=== PATIENT | female | born 1970 | race Caucasian/White ===

== ENCOUNTER → 2016-12-06 | Outpatient (CLI) | payer OTHER | END | disposition home or self-care (01) | LOC: MMGSC 16:56 | PROVIDERS: ATTEND Family Medicine | DX: M79.1 Myalgia (principal); G62.9 Polyneuropathy, unspecified | CPT/HCPCS: 36415; 82306; 82607; 82746 ==

== ENCOUNTER → 2017-02-07 | Outpatient (CLI) | payer OTHER ==
[2017-02-07 08:01] LABS: CH 30.2; CHCM 32.1; HCT 40.4 % (34.0-46.0); HDW 2.24; HGB 13.1 gm/dL (11.4-16.0); MCH 30.7 pg (25.0-35.0); MCHC 32.5 g/dL (31.0-37.0); MCV 94.5 fL (80.0-100.0); Mean Platelet Volume 7.3; RBC 4.28 m/uL (3.80-5.40); RDW 13.1 % (11.5-15.5); WBC 8.6 k/uL (3.8-10.6)
[2017-02-07 11:08] LABS: Glucose 2 Hour 84 mg/dL
[2017-02-07 11:40] LABS: ALT 31 U/L (9-52); AST 16 U/L (14-36); Alkaline Phosphatase 62 U/L (38-126); Anion Gap 7 mmol/L; Blood Urea Nitrogen 9 mg/dL (7-17); Calcium 8.9 mg/dL (8.4-10.2); Carbon Dioxide 31 mmol/L (22-30); Chloride 103 mmol/L (98-107); Glucose 96 mg/dL (74-99); Non-African American GFR(MDRD) >60 (>60 ml/min/1.73 sqM); Potassium 4.3 mmol/L (3.5-5.1); Sodium 141 mmol/L (137-145); Total Bilirubin 0.4 mg/dL (0.2-1.3); Total Protein 6.1 g/dL (6.3-8.2)
[2017-02-07 12:18] LABS: Vitamin B12 365 pg/mL (239-931)
== END ==
LOC: LABWHC1 07:42
PROVIDERS: ATTEND Nurse Practitioner Acute Care
DX: G62.9 Polyneuropathy, unspecified (principal)
CPT/HCPCS: 36415; 80053; 82607; 82947; 82950; 84165; 84207; 84439; 84443; 84481; 85027; 86334

== ENCOUNTER → 2018-10-11 | Outpatient (CLI) | payer BC ==
--- NOTE | 2018-10-14 09:13 | MM ---
Reason for exam: screening (asymptomatic). Last mammogram was performed 2 years and 4 months ago. History: Family history of breast cancer in paternal grandmother at age 80 and premenopausal breast cancer in aunt at age 49. Physical Findings: A clinical breast exam by your physician is recommended on an annual basis and results should be correlated with mammographic findings. MG Screening Mammo w CAD Bilateral CC and MLO view(s) were taken. Prior study comparison: June 14, 2016, bilateral MG screening mammo w CAD. February 09, 2015, bilateral MG screening mammo w CAD. The breast tissue is heterogeneously dense. This may lower the sensitivity of mammography. There is no discrete abnormality. ASSESSMENT: Negative, BI-RAD 1 RECOMMENDATION: Routine screening mammogram of both breasts in 1 year.
== END | disposition home or self-care (01) ==
LOC: RADMAMWWP 07:19
PROVIDERS: ATTEND Obstetrics & Gynecology
DX: Z12.31 Encounter for screening mammogram for malignant neoplasm of breast (principal); Z80.3 Family history of malignant neoplasm of breast
CPT/HCPCS: 77067

== ENCOUNTER → 2019-01-07 | Outpatient (CLI) | payer BC ==
[2019-01-07 08:18] LABS: HCT 44.5 % (34.0-46.0); MCH 29.4 pg (25.0-35.0); MCHC 31.4 g/dL (31.0-37.0); MCV 93.6 fL (80.0-100.0); Mean Platelet Volume 6.3; Platelet Count 387 k/uL (150-450); RBC 4.76 m/uL (3.80-5.40); RDW 13.1 % (11.5-15.5); WBC 7.9 k/uL (3.8-10.6)
[2019-01-07 11:48] LABS: Albumin 4.2 g/dL (3.80-4.90); Albumin/Globulin Ratio 2.33 (1.60-3.17); Anion Gap 8.9 mmol/L (4.00-12.00); Calcium 9.2 mg/dL (8.7-10.3); Carbon Dioxide 30.1 mmol/L (21.6-31.8); Globulin 1.8 g/dL (1.6-3.3); LDL Cholesterol,Calculated 124.8 mg/dL (0.0-131.0); Potassium 4.7 mmol/L (3.5-5.5); Total Bilirubin 0.4 mg/dL (0.3-1.2); VLDL Calculation 16.2 mg/dL (5.00-40.00)
[2019-01-07 11:55] LABS: T4, Free (Free Thyroxine) 1.2 ng/dL (0.80-1.80)
== END | disposition home or self-care (01) ==
LOC: LABWHC1 07:49
PROVIDERS: ATTEND Family Medicine
DX: Z00.00 Encounter for general adult medical examination without abnormal findings (principal); E55.9 Vitamin D deficiency, unspecified
CPT/HCPCS: 36415; 80053; 80061; 82306; 84439; 84443; 85027

== ENCOUNTER → 2019-03-28 | Outpatient (CLI) | payer BC ==
--- NOTE | 2019-03-28 08:09 | US ---
EXAMINATION TYPE: US abdomen complete DATE OF EXAM: 03/28/2019 COMPARISON: NONE CLINICAL HISTORY: R10.13 Epigastric pain. x 2 months, nausea. EXAM MEASUREMENTS: Liver Length: 14.2 cm Gallbladder Wall: 0.2 cm CBD: 0.3 cm Spleen: 9.1 cm Right Kidney: 10.8 x 5.0 x 4.3 cm Left Kidney: 11.4 x 5.0 x 4.7 cm Pancreas: Partially Obscured by bowel gas Liver: wnl Gallbladder: No stones seen Evidence for sonographic Dickinson's sign: No CBD: wnl Spleen: wnl Right Kidney: No hydronephrosis or masses seen Left Kidney: No hydronephrosis or masses seen Upper IVC: wnl Abd Aorta: wnl The liver is homogenous. The intrahepatic portion of the IVC and proximal abdominal aorta are within normal limits. There is no evidence of cholelithiasis. Common bile duct is unremarkable. The visu alized portions of the pancreas are homogenous. The spleen is unremarkable. Kidneys are symmetric a nd free of hydronephrosis. No renal lesions are seen. IMPRESSION: No distinct abnormality appreciated.
== END ==
LOC: RADUSWWP 07:37
PROVIDERS: ATTEND Family Medicine
DX: R10.13 Epigastric pain (principal)
CPT/HCPCS: 76700

== ENCOUNTER 2019-05-23 07:20 | Day surgery (SDC) | payer BC ==
[2019-05-22 09:22] VITALS: BMI 32.9
[~2019-05-23 07:20] MED LIST: LACTATED RINGERS 1,000 ML IV SCH
[2019-05-23] MEDS ORDERED: LIDOCAINE 1%-EPI 1:100,000 20 ML VIAL INTRAARTIC ONE (07:44)
[2019-05-23] MEDS ORDERED: LIDOCAINE 1% INJ 10MG/ML (20 ML MDV) ONE (08:12)
[2019-05-23] MEDS ORDERED: PROPOFOL 10 MG/ML 20 ML VIAL IV ONE (08:12)
[2019-05-23 08:26] VITALS: TEMP 98.8
--- NOTE | 2019-05-23 08:31 | P.PCN ---
Date of Procedure: 05/23/19 Procedure(s) Performed: Brief history: Patient is a pleasant 49-year-old white female, scheduled for an elective upper endoscopy as well as colonoscopy as a part of evaluation of chronic epigastric pain a few months duration and screening for colorectal neoplasia Procedure performed: Esophagogastroduodenoscopy with biopsy Colonoscopy Preoperative diagnosis: Chronic epigastric pain few months duration Screening for colon cancer Anesthesia: MAC Procedure: After informed consent was obtained from the patient was brought into the endoscopy unit and IV sedation was administered by anesthesia under continuous monitoring. Initially upper endoscopy was done. The Olympus GF 160 video endoscope was inserted inserted into the mouth and esophagus intubated without any difficulty and was gradually advanced into the stomach and duodenum and carefully examined. The bulb and second part of the duodenum appeared normal. Labs were done from the duodenum to rule out celiac disease. The scope was then withdrawn into the stomach adequately insufflated with air and upon careful examination the antrum had mild gastritis and and biopsies were done from this area. The bodyy, cardia and fundus appeared normal. The scope was then withdrawn into the esophagus. The GE junction was located at 36 cm to the incisors. Small hiatal hernia noted. It appeared regular with no erythema erosions or ulcerations. There was one fundus Perez's appearing mucosa extending 2 mm proximal to the GE junction and this was biopsied. Rest of the esophagus appeared normal. Patient tolerated the procedure well. At this time the patient continued to remain sedation. Initial digital rectal examination was normal. Olympus CF 160 video colonoscope was then inserted into the rectum and gradually advanced to the cecum without any difficulty. Careful examination was performed as the scope was gradually being withdrawn. The prep was excellent. The cecum, ascending colon, transverse colon, descending colon, sigmoid colon and rectum appeared normal. scattered sigmoid diverticulosis. Retroflexion was performed in the rectum and no lesions were noted. Patient tolerated the procedure well. Impression: 1. Upper endoscopy revealed mild antral gastritis, small hiatal hernia and short segment Perez's esophagus 2. Colonoscopy revealed scattered similar diverticulosis but no evidence of colitis or colorectal neoplasia Recommendations: Findings of this examination were discussed with the patient as well as her family. She was advised to follow with the biopsy results. She will continue with Prevacid 20 mg daily and follow antireflux measures. she can have a repeat screening colonoscopy in 10 years.
[2019-05-23 08:38] VITALS: RESP 18
[2019-05-23 09:03] VITALS: BP 138/87; PULSE 67
== END 2019-05-23 09:47 | disposition home or self-care (01) ==
LOC: ORWHC2ENDO 07:20
PROVIDERS: ATTEND Internal Medicine Gastroenterology
DX: Z12.11 Encounter for screening for malignant neoplasm of colon (principal); K29.50 Unspecified chronic gastritis without bleeding; K21.0 Gastro-esophageal reflux disease with esophagitis; K44.9 Diaphragmatic hernia without obstruction or gangrene; K57.90 Diverticulosis of intestine, part unspecified, without perforation or abscess without bleeding; Z79.899 Other long term (current) drug therapy; Z88.2 Allergy status to sulfonamides
CPT/HCPCS: 81025; 88305; 43239; J2001; J2704; G0121; 45378

== ENCOUNTER 2019-07-19 12:16 | Emergency (ER) | payer BC ==
[2019-07-19 12:25] VITALS: TEMP 98
[2019-07-19] MEDS ORDERED: SODIUM CHLORIDE 0.9% 1,000 ML IV STA ×2 (12:44)
[2019-07-19] MEDS ORDERED: KETOROLAC 30 MG/ML 1 ML VIAL IVP STA (12:52)
[2019-07-19] MEDS ORDERED: ONDANSETRON 4 MG/2 ML VIAL IVP STA (12:52)
[2019-07-19] MEDS ORDERED: MORPHINE SULFATE 4 MG/ML SYRINGE IVP STA (12:52)
[2019-07-19 13:01] LABS: Appearance,Urine Turbid (Clear); Bacteria,Urine Many /hpf; Bilirubin,Urine Negative (Negative); Blood,Urine Large (Negative); Color,Urine Yellow; Glucose,Urine (UA) Negative (Negative); Ketones,Urine 1+ (Negative); Leukocyte Esterase,Urine Large (Negative); Mucus,Urine Many /hpf; Nitrite,Urine Positive (Negative); Protein,Urine 1+ (Negative); RBC,Urine 122 /hpf (0-5); Specific Gravity,Urine 1.018 (1.001-1.035); Squamous Epithelial Cell,Urine 17 /hpf (0-4); WBC,Urine >182 /hpf (0-5)
[2019-07-19 13:03] LABS: INR 0.9 (<1.2)
[2019-07-19 13:04] LABS: Partial Thromboplastin Time 28.6 sec (22.0-30.0); Prothrombin Time 9.6 sec (9.0-12.0)
[2019-07-19 13:05] LABS: Basophils # (A) 0.1 k/uL (0-0.2); Basophils % (A) 1 %; Eosinophils # (A) 0.2 k/uL (0-0.7); Eosinophils % (A) 2 %; HCT 36.8 % (34.0-46.0); HGB 12.3 gm/dL (11.4-16.0); Lymphocytes # (A) 1.8 k/uL (1.0-4.8); Lymphocytes % (A) 15 %; MCH 30.1 pg (25.0-35.0); MCHC 33.5 g/dL (31.0-37.0); MCV 89.7 fL (80.0-100.0); Mean Platelet Volume 6.8; Monocytes # (A) 0.9 k/uL (0-1.0); Monocytes % (A) 8 %; Neutrophils # (A) 8.4 k/uL (1.3-7.7); Neutrophils % (A) 72 %; Platelet Count 406 k/uL (150-450); RDW 13.9 % (11.5-15.5); WBC 11.7 k/uL (3.8-10.6)
--- NOTE | 2019-07-19 13:08 | XR ---
EXAMINATION TYPE: XR KUB DATE OF EXAM: 07/19/2019 COMPARISON: None INDICATION: Abdominal pain TECHNIQUE: Single view abdomen upright view FINDINGS: There is a nonspecific bowel gas pattern. No mass effect is evident. No suspicious air-fluid levels a re present. No free air is evident. No dilated loops of bowel are evident. Psoas margins are normal. No organomegaly is present. IMPRESSION: 1. Unremarkable Abdomen. Bowel gas pattern is nonspecific.
[2019-07-19 13:15] LABS: ALT 28 U/L (9-52); AST 16 U/L (14-36); African American GFR (CKD) >90 (>60 ml/min/1.73 sqM); Albumin 3.4 g/dL (3.5-5.0); Alkaline Phosphatase 94 U/L (38-126); Amylase 36 U/L (30-110); Anion Gap 10 mmol/L; Blood Urea Nitrogen 9 mg/dL (7-17); Calcium 8.6 mg/dL (8.4-10.2); Carbon Dioxide 28 mmol/L (22-30); Chloride 100 mmol/L (98-107); Glucose 100 mg/dL (74-99); Potassium 3.6 mmol/L (3.5-5.1); Sodium 138 mmol/L (137-145); Total Bilirubin 0.6 mg/dL (0.2-1.3); Total Protein 6.4 g/dL (6.3-8.2)
[2019-07-19 13:17] VITALS: RESP 14
--- NOTE | 2019-07-19 13:42 | ED ---
Abdominal Pain HPI - General Chief Complaint: Abdominal Pain Stated Complaint: lt sided abd pain Time Seen by Provider: 07/19/19 12:43 Source: patient, RN notes reviewed, old records reviewed Mode of arrival: ambulatory Limitations: no limitations - History of Present Illness Initial Comments: Patient is a 49-year-old female presents emergency department today for evaluation with complaints of left sided flank pain since Sunday. Patient reports that she's been having some dark urine. No history of kidney stones or kidney infections. She reports chills. She denies any other symptoms. - Related Data Home Medications Medication Instructions Recorded Confirmed ALPRAZolam [Xanax] 0.25 mg PO BID PRN 05/22/19 05/23/19 Ascorbic Acid [Vitamin C] 500 mg PO DAILY 05/22/19 05/23/19 Aspirin/Acetaminophen/Caffeine 1 each PO Q6H PRN 05/22/19 05/23/19 [Excedrin Extra Strength Caplet] Cholecalciferol (Vitamin D3) 1,000 unit PO DAILY 05/22/19 05/23/19 [Vitamin D3] Omeprazole Magnesium [PriLOSEC OTC] 20 mg PO DAILY 05/22/19 05/23/19 Potassium 99 mg PO DAILY 05/22/19 05/23/19 Previous Rx's Medication Instructions Recorded Cephalexin [Keflex] 500 mg PO Q6HR #40 cap 07/19/19 HYDROcodone/APAP 5-325MG [[place] 1 tab PO Q6HR PRN #10 tab 07/19/19 5-325] Ketorolac [Toradol] 10 mg PO Q6HR #15 tab 07/19/19 Allergies Allergy/AdvReac Type Severity Reaction Status Date / Time Sulfa (Sulfonamide Allergy Anaphylaxis Verified 05/23/19 07:35 Antibiotics) Review of Systems ROS Statement: Those systems with pertinent positive or pertinent negative responses have been documented in the HPI. ROS Other: All systems not noted in ROS Statement are negative. Past Medical History Past Medical History: GERD/Reflux Additional Past Medical History / Comment(s): epigastric pain for a month, ten cary to touch History of Any Multi-Drug Resistant Organisms: None Reported Past Surgical History: Section, Tubal Ligation Past Anesthesia/Blood Transfusion Reactions: Postoperative Nausea & Vomiting (PONV) Past Psychological History: No Psychological Hx Reported Smoking Status: Former smoker Past Alcohol Use History: None Reported Past Drug Use History: None Reported - Past Family History Mother Family Medical History: No Reported History General Exam - General Exam Comments Initial Comments: This is a 49 year old female, no distress. Limitations: no limitations General appearance: alert, in no apparent distress Head exam: Present: atraumatic, normocephalic, normal inspection Eye exam: Present: normal appearance, PERRL, EOMI. Absent: scleral icterus, conjunctival injection, periorbital swelling ENT exam: Present: normal exam, mucous membranes moist Neck exam: Present: normal inspection. Absent: tenderness, meningismus, lymphad enopathy Respiratory exam: Present: normal lung sounds bilaterally. Absent: respiratory distress, wheezes, rales, rhonchi, stridor Cardiovascular Exam: Present: regular rate, normal rhythm, normal heart sounds. Absent: systolic murmur, diastolic murmur, rubs, gallop, clicks GI/Abdominal exam: Present: soft, tenderness (L cva ), normal bowel sounds. Absent: distended, guarding, rebound, rigid Extremities exam: Present: normal inspection, full ROM, normal capillary refill. Absent: tenderness, pedal edema, joint swelling, calf tenderness Back exam: Present: normal inspection Neurological exam: Present: alert, oriented X3, CN II-XII intact Psychiatric exam: Present: normal affect, normal mood Skin exam: Present: warm, dry, intact, normal color. Absent: rash Course Vital Signs 07/19/19 07/19/19 07/19/19 12:22 13:17 15:12 Temperature 98 F Pulse Rate 94 89 84 Respiratory 18 14 14 Rate Blood Pressure 127/86 129/79 118/82 O2 Sat by Pulse 95 95 98 Oximetry Medical Decision Making - Medical Decision Making 49 year old female with left flank pain, chills and abdominal pain for 5 days. At this time UA is positive for infection. Patient has normal labs otherwise. CT completed to rule out possible stone. Evidence of left sided perinephric stranding and concern for pyelopnephritis. At this time patient given 2 g rocephin and fluids. Urine culture completed. DC with Rx or keflex and pain medication. Discussed close follow up and return parameters discussed. Di scussed PCP follow up. - Lab Data Result diagrams: 07/19/19 12:40 07/19/19 12:40 Lab Results 07/19/19 07/19/19 07/19/19 Range/Units 12:40 12:40 12:40 WBC 11.7 H (3.8-10.6) k/uL RBC 4.10 (3.80-5.40) m/uL Hgb 12.3 (11.4-16.0) gm/dL Hct 36.8 (34.0-46.0) % MCV 89.7 (80.0-100.0) fL MCH 30.1 (25.0-35.0) pg MCHC 33.5 (31.0-37.0) g/dL RDW 13.9 (11.5-15.5) % Plt Count 406 (150-450) k/uL Neutrophils % 72 % Lymphocytes % 15 % Monocytes % 8 % Eosinophils % 2 % Basophils % 1 % Neutrophils # 8.4 H (1.3-7.7) k/uL Lymphocytes # 1.8 (1.0-4.8) k/uL Monocytes # 0.9 (0-1.0) k/uL Eosinophils # 0.2 (0-0.7) k/uL Basophils # 0.1 (0-0.2) k/uL PT 9.6 (9.0-12.0) sec INR 0.9 (<1.2) APTT 28.6 (22.0-30.0) sec Sodium 138 (137-145) mmol/L Potassium 3.6 (3.5-5.1) mmol/L Chloride 100 (98-107) mmol/L Carbon Dioxide 28 (22-30) mmol/L Anion Gap 10 mmol/L BUN 9 (7-17) mg/dL Creatinine 0.49 L (0.52-1.04) mg/dL Est GFR (CKD-EPI)AfAm >90 (>60 ml/min/1.73 sqM) Est GFR (CKD-EPI)NonAf >90 (>60 ml/min/1.73 sqM) Glucose 100 H (74-99) mg/dL Calcium 8.6 (8.4-10.2) mg/dL Total Bilirubin 0.6 (0.2-1.3) mg/dL AST 16 (14-36) U/L ALT 28 (9-52) U/L Alkaline Phosphatase 94 (38-126) U/L Total Protein 6.4 (6.3-8.2) g/dL Albumin 3.4 L (3.5-5.0) g/dL Amylase 36 (30-110) U/L Lipase 36 (23-300) U/L Urine Color Urine Appearance (Clear) Urine pH (5.0-8.0) Ur Specific [place] (1.001-1.035) Urine Protein (Negative) Urine Glucose (UA) (Negative) Urine Ketones (Negative) Urine Blood (Negative) Urine Nitrite (Negative) Urine Bilirubin (Negative) Urine Urobilinogen (<2.0) mg/dL Ur Leukocyte Esterase (Negative) Urine RBC (0-5) /hpf Urine WBC (0-5) /hpf Urine WBC Clumps (None) /hpf Ur Squamous Epith Cells (0-4) /hpf Urine Bacteria (None) /hpf Urine Mucus (None) /hpf 07/19/19 Range/Units 12:40 WBC (3.8-10.6) k/uL RBC (3.80-5.40) m/uL Hgb (11.4-16.0) gm/dL Hct (34.0-46.0) % MCV (80.0-100.0) fL MCH (25.0-35.0) pg MCHC (31.0-37.0) g/dL RDW (11.5-15.5) % Plt Count (150-450) k/uL Neutrophils % % Lymphocytes % % Monocytes % % Eosinophils % % Basophils % % Neutrophils # (1.3-7.7) k/uL Lymphocytes # (1.0-4.8) k/uL Monocytes # (0-1.0) k/uL Eosinophils # (0-0.7) k/uL Basophils # (0-0.2) k/uL PT (9.0-12.0) sec INR (<1.2) APTT (22.0-30.0) sec Sodium (137-145) mmol/L Potassium (3.5-5.1) mmol/L Chloride (98-107) mmol/L Carbon Dioxide (22-30) mmol/L Anion Gap mmol/L BUN (7-17) mg/dL Creatinine (0.52-1.04) mg/dL Est GFR (CKD-EPI)AfAm (>60 ml/min/1.73 sqM) Est GFR (CKD-EPI)NonAf (>60 ml/min/1.73 sqM) Glucose (74-99) mg/dL Calcium (8.4-10.2) mg/dL Total Bilirubin (0.2-1.3) mg/dL AST (14-36) U/L ALT (9-52) U/L Alkaline Phosphatase (38-126) U/L Total Protein (6.3-8.2) g/dL Albumin (3.5-5.0) g/dL Amylase (30-110) U/L Lipase (23-300) U/L Urine Color Yellow Urine Appearance Turbid H (Clear) Urine pH 6.0 (5.0-8.0) Ur Specific [place] 1.018 (1.001-1.035) Urine Protein 1+ H (Negative) Urine Glucose (UA) Negative (Negative) Urine Ketones 1+ H (Negative) Urine Blood Large H (Negative) Urine Nitrite Positive H (Negative) Urine Bilirubin Negative (Negative) Urine Urobilinogen 3.0 (<2.0) mg/dL Ur Leukocyte Esterase Large H (Negative) Urine RBC 122 H (0-5) /hpf Urine WBC >182 H (0-5) /hpf Urine WBC Clumps Many H (None) /hpf Ur Squamous Epith Cells 17 H (0-4) /hpf Urine Bacteria Many H (None) /hpf Urine Mucus Many H (None) /hpf - Radiology Data Radiology results: report reviewed (Upper extremity with no evidence of hydronephrosis or hydroureter. Palate otitis could be considered. Anything else occasional the mid left ureter is not excluded could be within differential. Diverticulosis without acute diverticulitis. Disposition Clinical Impression: Pyelonephritis Disposition: HOME SELF-CARE Condition: Good Instructions (If sedation given, give patient instructions): Kidney Infection (ED) Additional Instructions: Patient advsied to follow up with your primary care physician. Take antibiotics as prescribed. Use the pain medicine as directed. Return to emergency department if any alarming signs or symptoms occur. Prescriptions: Cephalexin [Keflex] 500 mg PO Q6HR #40 cap HYDROcodone/APAP 5-325MG [[place] 5-325] 1 tab PO Q6HR PRN #10 tab PRN Reason: Pain Ketorolac [Toradol] 10 mg PO Q6HR #15 tab Is patient prescribed a controlled substance at d/c from ED?: No Referrals: Flor Kellogg MD [Primary Care Provider] - 1-2 days Time of Disposition: 14:59
--- NOTE | 2019-07-19 13:59 | CT ---
EXAMINATION TYPE: CT abdomen pelvis wo con DATE OF EXAM: 07/19/2019 COMPARISON: None INDICATION: Lt flank pain DLP: 770 mGycm, Automated exposure control for dose reduction was used. CONTRAST: 0 mL of Isovue 300. Study performed without Oral Contrast TECHNIQUE: Axial images were obtained from above the diaphragm to the pubic rami in the axial plane a t 5 mm thick sections. Reconstructed images are reviewed on the computer in the coronal plane. FINDINGS: Limited CT sections are obtained the lung bases. The lung bases are clear. CT ABDOMEN: Liver: Normal Spleen: Normal Pancreas: Normal Adrenal glands: The adrenal glands are normal. Gallbladder: Normal Kidneys: No masses are evident. Left perinephric stranding is present. Correlate for pyelonephritis. No hydronephrosis is present. No cysts are present. No renal stones are identified. Within the exp ected region of the left ureter some very faint increased density may be within the distal ureter, se rafal 201 image 91. A punctate nonobstructing renal stone is not excluded. Aorta: Vascular calcification is within the aorta. Inferior vena cava: Normal. CT PELVIS: Loops of bowel within the abdomen and pelvis are normal. Is performed without oral contrast limit ing bowel evaluation. Scattered diverticuli are within the sigmoid colon Appendix: Normal as visualized. Urinary bladder: Decompressed and cannot be evaluated Genitourinary structures: Uterus is normal. Adnexal regions are clear. Osseous structures: No suspicious lytic or sclerotic lesions. IMPRESSIONS: 1. Some left perinephric stranding is present without evidence of hydronephrosis or hydroureter or r enal stones. Pyelonephritis could be considered. Very faint tiny calcification within the mid left ur eter is not excluded should be considered within the differential. 2. Diverticulosis without acute diverticulitis.
[2019-07-19 15:13] VITALS: BP 118/82; PULSE 84
== END 2019-07-19 15:11 | disposition home or self-care (01) ==
LOC: EC 12:16
DX: N12 Tubulo-interstitial nephritis, not specified as acute or chronic (principal); K21.9 Gastro-esophageal reflux disease without esophagitis; Z98.51 Tubal ligation status; Z87.891 Personal history of nicotine dependence; Z79.899 Other long term (current) drug therapy; Z88.2 Allergy status to sulfonamides
CPT/HCPCS: 99285; 96365; 96375 ×3; 96361 ×2; 36415; 80053; 82150; 83690; 85025; 85610; 85730; 81001; 87086; 87077; 87186; 74018; 74176; J2270; J2405; J0696; J1885

== ENCOUNTER → 2019-12-24 | Outpatient (CLI) | payer BC ==
--- NOTE | 2019-12-25 10:20 | MM ---
Reason for exam: screening (asymptomatic). Last mammogram was performed 1 year and 2 months ago. History: Family history of breast cancer in paternal grandmother at age 80 and premenopausal breast cancer in aunt at age 49. Physical Findings: A clinical breast exam by your physician is recommended on an annual basis and results should be correlated with mammographic findings. MG 3D Screening Mammo W/Cad Bilateral CC and MLO view(s) were taken. Prior study comparison: October 11, 2018, bilateral MG screening mammo w CAD. June 14, 2016, bilateral MG screening mammo w CAD. There are scattered fibroglandular densities. No suspicious abnormality. No significant changes when compared with prior studies. ASSESSMENT: Negative, BI-RAD 1 RECOMMENDATION: Routine screening mammogram of both breasts in 1 year.
== END | disposition home or self-care (01) ==
LOC: RADMAMWWP 07:37
PROVIDERS: ATTEND Obstetrics & Gynecology
DX: Z08 Encounter for follow-up examination after completed treatment for malignant neoplasm (principal); Z80.3 Family history of malignant neoplasm of breast
CPT/HCPCS: 77063; 77067

== ENCOUNTER → 2020-01-13 | Outpatient (CLI) | payer SELFPAY ==
--- NOTE | 2020-01-13 10:47 | CT ---
EXAMINATION TYPE: CT heart w calcium score DATE OF EXAM: 01/13/2020 COMPARISON: None HISTORY: Screening for cardiovascular disorder. 213.9 CT DLP: 51.90 mGycm Automated exposure control for dose reduction was used. CT CALCIUM SCORING Coronary calcium is a marker for plaque (fatty deposits) in a blood vessel or atherosclerosis (harden ing of the arteries). The presence and amount of calcium detected in a coronary artery by the CT sca n, indicates the presence and amount of atherosclerotic plaque. These calcium deposits appear years before the development of heart disease symptoms such as chest pain and shortness of breath. A calcium score is computed for each of the coronary arteries based upon the volume and density of th e calcium deposits. This can be referred to as your calcified plaque burden. It does not correspond directly to the percentage of narrowing in the artery but does correlate with the severity of the un derlying coronary atherosclerosis. PROCEDURE TECHNIQUE - Prospective Gating was used. Slice thickness: 3mm. Density threshold (HU): 130, Pixel threshold: 3, Algorithm: discrete. RESULTS Region: LM Calcium Score ([place]): 0.00 Volume (mm3): 0.00 Mass (g): 0.00 Region: RCA Calcium Score ([place]): 0.00 Volume (mm3): 0.00 Mass (g): 0.00 Region: LAD Calcium Score ([place]): 0.00 Volume (mm3): 0.00 Mass (g): 0.00 Region: CX Calcium Score ([place]): 0.00 Volume (mm3): 0.00 Mass (g): 0.00 Region: PDA Calcium Score ([place]): 0.00 Volume (mm3): 0.00 Mass (g): 0.00 Total: Calcium Score ([place]): 0.00 Volume (mm3): 0.00 Mass (g): 0.00 TOTAL CALCIUM SCORE: 0.00 IMPRESSION: Calcium Score: 0 Implication: Very low risk of coronary artery disease Risk of Coronary Artery Disease: Generally less than 5% CALCIUM SCORE IMPLICATION RISK OF C ORONARY ARTERY DISEASE 0 No identifiable plaque Very low, generally less than 5% 1-10 Minimal identifiable plaque Very unlikely, less than 10% 11-100 Definite, at least mild atherosclerotic plaque Mild or m inimal coronary narrowings likely 101-400 Definite, at least moderate atherosclerotic plaque Mild coronary ar marci disease highly likely, significant narrowing possible 401 or Higher Extensive atherosclerotic plaque High lik elihood of at least one significant coronary narrowing
== END | disposition home or self-care (01) ==
LOC: RADCTMAIN 08:41
PROVIDERS: ATTEND Internal Medicine Interventional Cardiology
DX: Z13.9 Encounter for screening, unspecified (principal); Z88.2 Allergy status to sulfonamides
CPT/HCPCS: 75571

== ENCOUNTER → 2020-08-25 | Outpatient (CLI) | payer BC ==
--- NOTE | 2020-08-25 13:55 | US ---
EXAMINATION TYPE: US pelvis complete transvag DATE OF EXAM: 08/25/2020 COMPARISON: CT CLINICAL HISTORY: R10.13 Epigastric pain. LLQ pain per patient. TECHNIQUE: Transvaginal (TV) and Transabdominal (TA) . Transabdominal sonographic images of the pel vis were acquired. Transvaginal sonographic images were medically necessary to better assess the fol lowing anatomy: ovaries. Date of LMP: 07/05/2020 EXAM MEASUREMENTS: Uterus: 8.8 x 4.2 x 5.2 cm Endometrial Stripe: 0.6 cm Right Ovary: 2.5 x 2.1 x 1.3 cm Left Ovary: 2.2 x 2.3 x 0.9 cm 1. Uterus: Anteverted heterogeneous echotexture 2. Endometrium: difficult to distinguish 3. Right Ovary: wnl 4. Left Ovary: wnl 5. Bilateral Adnexa: wnl 6. Posterior cul-de-sac: no free fluid IMPRESSION: 1. Uterus is heterogeneous. Endometrium is difficult to identify and limited in evaluation. No adnexa l mass or free fluid.
--- NOTE | 2020-08-25 13:56 | US ---
EXAMINATION TYPE: US abdomen limited DATE OF EXAM: 08/25/2020 COMPARISON: CT CLINICAL HISTORY: R10.13 Epigastric pain. EXAM MEASUREMENTS: Liver Length: 10.6 cm Gallbladder Wall: 0.2 cm CBD: 0.4 cm Right Kidney: 9.9 x 4.8 x 4.9 cm Pancreas: visualized portions wnl Liver: wnl Gallbladder: No stones seen Evidence for sonographic Dickinson's sign: No CBD: wnl Right Kidney: No hydronephrosis or masses seen IMPRESSION: 1. No acute process.
== END | disposition home or self-care (01) ==
LOC: RADUSWWP 12:18
PROVIDERS: ATTEND Family Medicine
DX: R10.13 Epigastric pain (principal)
CPT/HCPCS: 76705; 76830; 76856

== ENCOUNTER → 2020-11-12 | Outpatient (CLI) | payer BC ==
[2020-11-12 15:51] LABS: Chol/HDL Ratio 3.35; LDL Cholesterol,Calculated 141.2 mg/dL (0.0-131.0); VLDL Calculation 25.8 mg/dL (5.00-40.00)
== END | disposition home or self-care (01) ==
LOC: LABWHC1 09:03
PROVIDERS: ATTEND Nurse Practitioner Adult Health
DX: E78.5 Hyperlipidemia, unspecified (principal); E55.9 Vitamin D deficiency, unspecified
CPT/HCPCS: 36415; 80061; 82306

== ENCOUNTER → 2021-01-31 | Outpatient (CLI) | payer BC ==
--- NOTE | 2021-02-01 11:26 | MM ---
Reason for exam: screening (asymptomatic). Last mammogram was performed 1 year and 1 month ago. History: Family history of breast cancer in paternal grandmother at age 80 and premenopausal breast cancer in aunt at age 49. Physical Findings: A clinical breast exam by your physician is recommended on an annual basis and results should be correlated with mammographic findings. MG 3D Screening Mammo W/Cad Bilateral CC and MLO view(s) were taken. Prior study comparison: December 24, 2019, bilateral MG 3d screening mammo w/cad. October 11, 2018, bilateral MG screening mammo w CAD. There are scattered fibroglandular densities. There is no discrete abnormality. ASSESSMENT: Negative, BI-RAD 1 RECOMMENDATION: Routine screening mammogram of both breasts in 1 year.
== END | disposition home or self-care (01) ==
LOC: RADMAMWWP 07:48
PROVIDERS: ATTEND Obstetrics & Gynecology
DX: Z12.31 Encounter for screening mammogram for malignant neoplasm of breast (principal); Z80.3 Family history of malignant neoplasm of breast
CPT/HCPCS: 77063; 77067

== ENCOUNTER → 2021-11-22 | Outpatient (CLI) | payer BC ==
[2021-11-22 18:33] LABS: HGB 14.5 g/dL (12.0-15.0); MCH 29.4 pg (27.0-32.0); MCHC 30.9 g/dL (32.0-37.0); MCV 95.1 fL (80.0-97.0); Mean Platelet Volume 9.6 fL (9.5-12.2); Platelet Count 393 X 10*3/uL (140-440); RBC 4.94 X 10*6/uL (4.10-5.20); RDW 13.4 % (11.5-14.5); WBC 10.78 X 10*3/uL (4.50-10.00)
[2021-11-22 19:31] LABS: African American GFR (CKD) 122.8 (60.0-200.0); Albumin 4.2 g/dL (3.8-4.9); Albumin/Globulin Ratio 2.03 (1.60-3.17); Anion Gap 10.9 mmol/L (10.00-18.00); BUN/Creat Ratio 19.01 Ratio (12.00-20.00); Blood Urea Nitrogen 10.8 mg/dL (9.0-27.0); Calcium 9.4 mg/dL (8.7-10.3); Carbon Dioxide 27.4 mmol/L (20.0-27.5); Globulin 2.1 g/dL (1.6-3.3); Magnesium 2.2 mg/dL (1.5-2.4); Potassium 4.6 mmol/L (3.5-5.5); T4, Free (Free Thyroxine) 1.22 ng/dL (0.800-1.800); Total Bilirubin 0.3 mg/dL (0.30-1.20); Total Protein 6.2 g/dL (6.2-8.2)
== END | disposition home or self-care (01) ==
LOC: LABWHC1 10:47
PROVIDERS: ATTEND Nurse Practitioner Adult Health
DX: E55.9 Vitamin D deficiency, unspecified (principal); R53.83 Other fatigue
CPT/HCPCS: 36415; 80053; 82306; 83735; 84439; 84443; 84481; 85027

== ENCOUNTER 2022-09-15 09:39 | Day surgery (SDC) | payer BC ==
[2022-09-13 09:43] VITALS: BMI 33.8
[2022-09-15 10:35] VITALS: TEMP 98.2
[2022-09-15] MEDS ORDERED: LACTATED RINGERS 1,000 ML IV ONE (10:40)
[2022-09-15] MEDS ORDERED: LIDOCAINE 2% INJ 20 MG/ML (2 ML VIAL) ONE (11:20)
[2022-09-15] MEDS ORDERED: PROPOFOL 10 MG/ML 20 ML VIAL IV ONE (11:20)
--- NOTE | 2022-09-15 11:32 | P.PCN ---
Date of Procedure: 09/15/22 Procedure(s) Performed: BRIEF HISTORY: Patient is a 52-year-old, pleasant, white female scheduled for an upper endoscopy as a part of evaluation of long-standing history of GERD and Perez's esophagus. She has been on omeprazole 20 mg daily but she stopped it 3 months ago.. PROCEDURE PERFORMED: Esophagogastroduodenoscopy with biopsy. PREOPERATIVE DIAGNOSIS: GERD and Perez's esophagus. IV sedation per anesthesia. PROCEDURE: After informed consent was obtained, the patient was brought into the endoscopy unit. IV sedation was administered by Anesthesia under continuous monitoring. Initially the Olympus GIF-140 video endoscope was inserted into the mouth. Esophagus intubated without any difficulty. It was gradually advanced into the stomach and duodenum and carefully examined. The bulb and the second part of the duodenum appeared normal. The scope at this time was withdrawn to the stomach, adequately insufflated with air, and upon careful examination, mucosa of the antrum, had mild gastritis. The body, cardia and the fundus appeared normal. The scope was then withdrawn into the esophagus. Small hiatal hernia noted. The GE junction was located at 35 cm from the incisors. There were linear erosions in the distal esophagus consistent with LA grade B reflux esophagitis. There was a 4 mm tongue of Perez's appearing mucosa just proximal to the GE junction which was biopsied. Rest of esophagus appeared normal and the patient tolerated the procedure well. IMPRESSION: 1. Linear erosions in the distal esophagus consistent with LA grade B reflux esophagitis. 2. Short segment Perez's esophagus 3. Small hiatal hernia. RECOMMENDATIONS: The findings of this examination were discussed with the patient as well as a family. She was advised to follow with the biopsy results. In the meantime she will start back on omeprazole 20 mg daily and follow antireflux measures. If the biopsy confirms the presence of Perez's esophagus he can have a repeat upper endoscopy in 3 years..
[2022-09-15 11:59] VITALS: BP 141/81; PULSE 78; RESP 20
== END 2022-09-15 12:15 ==
LOC: ORWHC2ENDO 09:39
PROVIDERS: ATTEND Internal Medicine Gastroenterology
DX: K21.00 Gastro-esophageal reflux disease with esophagitis, without bleeding (principal); K22.70 Barrett's esophagus without dysplasia; K44.9 Diaphragmatic hernia without obstruction or gangrene; K29.50 Unspecified chronic gastritis without bleeding; K21.9 Gastro-esophageal reflux disease without esophagitis; Z88.2 Allergy status to sulfonamides
CPT/HCPCS: 81025; 88305; 43239; J2704; J2001

== ENCOUNTER → 2023-03-05 | Outpatient (CLI) | payer BC ==
--- NOTE | 2023-03-06 09:58 | MM ---
Reason for Exam: Screening (asymptomatic). Last screening mammogram was performed 12 month(s) ago. Patient History: Menarche at age 12. First Full-Term at age 24. Postmenopausal. Currently using Estrogen, for 1 month. Currently using Progesterone, for 1 month. Paternal grandmother had breast cancer, age 80. Maternal aunt had breast cancer, age 49. Risk Values: Katina 5 year model risk: 1.2%. NCI Lifetime model risk: 8.5%. Prior Study Comparison: 12/24/2019 Bilateral Screening Mammogram, [facility]. 01/31/2021 Bilateral Screening Mammogram, [facility]. 03/02/2022 Bilateral Screening Mammogram, [facility]. Tissue Density: There are scattered fibroglandular densities. Findings: Analyzed By CAD. There is no suspicious group of microcalcifications or new suspicious mass in either breast. Overall Assessment: Negative, BI-RAD 1 Management: Screening Mammogram of both breasts in 1 year. A clinical breast exam by your physician is recommended on an annual basis and results should be correlated with mammographic findings. Electronically signed and approved by: Bryce Baron M.D. Radiologis
== END | disposition home or self-care (01) ==
LOC: RADMAMWWP 15:57
PROVIDERS: ATTEND Obstetrics & Gynecology
DX: Z12.31 Encounter for screening mammogram for malignant neoplasm of breast (principal); Z78.0 Asymptomatic menopausal state; Z80.3 Family history of malignant neoplasm of breast
CPT/HCPCS: 77063; 77067

== ENCOUNTER → 2023-11-16 | Outpatient (CLI) | payer BC ==
--- NOTE | 2023-11-16 19:54 | CT ---
EXAMINATION TYPE: CT abdomen pelvis w con CT DLP: 1098.7 mGycm, Automated exposure control for dose reduction was used. DATE OF EXAM: 11/16/2023 5:41 PM COMPARISON: 01/02/2020 CLINICAL INDICATION:Female, 53 years old with history of R10.9 AB PAIN R14.0 BLOATING R31.9 HEMATURIA ; abdominal pain and bloating, hematuria TECHNIQUE: Axial CT abdomen pelvis w con;Sagittal and coronal reformats were created on a separate w orkstation. Contrast used:100 mL of Isovue 300 with IV Contrast, (none if empty) Oral contrast used: with Oral Contrast (none if empty) FINDINGS: LOWER CHEST: Unremarkable ABDOMEN LIVER: Unremarkable GALLBLADDER AND BILE DUCTS: Unremarkable. PANCREAS: Unremarkable. SPLEEN: Unremarkable. ADRENAL GLANDS: Unremarkable. KIDNEYS AND URETERS: No evidence of hydronephrosis or renal calculus. The ureters are unremarkable. PELVIS BLADDER: Unremarkable REPRODUCTIVE: Unremarkable. ABDOMEN & PELVIS STOMACH AND BOWEL: No evidence of bowel obstruction. Scattered colonic diverticula. The appendix is n ormal. PERITONEUM/RETROPERITONEUM: No evidence of pneumoperitoneum or free fluid. VASCULATURE: No evidence of aortic aneurysm. MUSCULOSKELETAL: No acute osseous abnormalities LYMPH NODES: No gross evidence for lymphadenopathy. SOFT TISSUE/ABDOMINAL WALL: Fat-containing umbilical hernia. IMPRESSION: 1. Thickened endometrium for patient's age suggested. Consider further evaluation with pelvic ultras ound. 2. No evidence for obstructive uropathy or renal calculus. No evidence for acute abdominal process.
== END | disposition home or self-care (01) ==
LOC: RADCTMAIN 15:42
PROVIDERS: ATTEND Family Medicine
DX: R93.89 Abnormal findings on diagnostic imaging of other specified body structures (principal); R14.0 Abdominal distension (gaseous); R31.9 Hematuria, unspecified
CPT/HCPCS: 74177; Q9967

== ENCOUNTER → 2024-03-06 | Outpatient (CLI) | payer BC ==
--- NOTE | 2024-03-11 13:36 | MM ---
Reason for Exam: Screening (asymptomatic). Last screening mammogram was performed 12 month(s) ago. Patient History: Menarche at age 12. First Full-Term at age 24. Postmenopausal. Currently using Estrogen, for 1 month. Currently using Progesterone, for 1 month. Paternal grandmother had breast cancer, age 80. Paternal aunt had breast cancer, age 49. Risk Values: Katina 5 year model risk: 1.2%. NCI Lifetime model risk: 8.3%. Prior Study Comparison: 01/31/2021 Bilateral Screening Mammogram, [facility]. 03/02/2022 Bilateral Screening Mammogram, [facility]. 03/05/2023 Bilateral MG 3D screening mammo w/cad, [facility]. Tissue Density: There are scattered areas of fibroglandular density. Findings: Analyzed By CAD. Right breast: There is no suspicious group of microcalcifications or new suspicious mass. Left breast: There is no suspicious group of microcalcifications or new suspicious mass. Overall Assessment: Negative, BI-RAD 1 Management: Screening Mammogram of both breasts in [address] [facility] will attempt to contact patient to return for supplemental views and ultrasound if indicated. Patient should continue monthly self-breast exams. A clinical breast exam by your physician is recommended on an annual basis. This exam should not preclude additional follow-up of suspicious palpable abnormalities. Note on Katina scores and lifetime risk: 1. A Katina score greater than 3% is considered moderate risk. If this is the case, consider specialist referral to assess eligibility for a risk reducing agent. 2. If overall lifetime risk for the development of breast cancer is 20% or higher, the patient may qualify for future screening with alternating mammogram and breast MRI. Electronically signed and approved by: Aayush Gupta DO
== END | disposition home or self-care (01) ==
LOC: RADMAMWWP 15:15
PROVIDERS: ATTEND Obstetrics & Gynecology
DX: Z12.31 Encounter for screening mammogram for malignant neoplasm of breast (principal); Z80.3 Family history of malignant neoplasm of breast; Z78.0 Asymptomatic menopausal state
CPT/HCPCS: 77063; 77067

== ENCOUNTER 2024-06-08 14:35 | Emergency (ER) | payer BC ==
[2024-06-08 14:43] VITALS: RESP 18
--- NOTE | 2024-06-08 15:01 | ED ---
Chest Pain HPI - General Chief Complaint: Chest Pain Stated Complaint: chest pain Time Seen by Provider: 06/08/24 14:46 Source: patient, RN notes reviewed, old records reviewed Mode of arrival: ambulatory Limitations: no limitations - History of Present Illness Initial Comments: This is a 54-year-old female to the ER for evaluation today. Patient presents today for evaluation regards to chest pain abdominal pain epigastric pain rating to the back. Shortness of breath history of reflux pain radiating to the back. Shortness of breath history of esophagitis and Vega's esophagus MD Complaint: chest pain, other (Abdominal pain) -: hour(s) Pain Location: substernal, epigastric Pain Radiation: back Severity: severe Severity scale (1-10): 8 Quality: aching, dull Consistency: constant Improves With: nothing Worsens With: nothing Context: recent illness Anginal Symptoms: diaphoresis, dyspnea, sense of impending doom Other Symptoms: palpitations Treatments Prior to Arrival: none - Related Data Home Medications Medication Instructions Recorded Confirmed Ascorbic Acid [Vitamin C] 500 mg PO DAILY 05/22/19 09/15/22 Aspirin/Acetaminophen/Caffeine 1 each PO Q6H PRN 05/22/19 09/15/22 [Excedrin Extra Strength Caplet] Cholecalciferol (Vitamin D3) 1,000 unit PO DAILY 05/22/19 09/15/22 [Vitamin D3] Estrogen Vitamin-Dim 1 tab PO DAILY 09/13/22 09/15/22 Progesterone, Micronized 100 mg PO HS 09/13/22 09/15/22 [Progesterone] Vit B 1 tab PO DAILY 09/13/22 09/15/22 Allergies Allergy/AdvReac Type Severity Reaction Status Date / Time Sulfa (Sulfonamide Allergy Anaphylaxis Verified 09/15/22 10:24 Antibiotics) Review of Systems ROS Statement: Those systems with pertinent positive or pertinent negative responses have been documented in the HPI. ROS Other: All systems not noted in ROS Statement are negative. EKG Findings - EKG Comments: EKG Findings:: EKG is sinus 89 ND 118 QRS 78 QTc 418 - EKG Results: EKG: interpreted by KEISHA Past Medical History Past Medical History: GERD/Reflux Additional Past Medical History / Comment(s): VEGA'S ESOPHAGUS History of Any Multi-Drug Resistant Organisms: None Reported Past Surgical History: Section, Tubal Ligation Additional Past Surgical History / Comment(s): EGD, COLONOSCOPY. BIO IDENTICAL HORMONE THERAPY EVERY 3-4 MONTHS Past Anesthesia/Blood Transfusion Reactions: Postoperative Nausea & Vomiting (PONV) Past Psychological History: No Psychological Hx Reported Smoking Status: Former smoker - Past Family History Mother Family Medical History: No Reported History General Exam Limitations: no limitations General appearance: alert, in no apparent distress, anxious Head exam: Present: atraumatic, normocephalic, normal inspection Eye exam: Present: normal appearance, PERRL, EOMI. Absent: scleral icterus, conjunctival injection, periorbital swelling ENT exam: Present: normal exam, mucous membranes moist Neck exam: Present: normal inspection. Absent: tenderness, meningismus, lymphadenopathy Respiratory exam: Present: normal lung sounds bilaterally. Absent: respiratory distress, wheezes, rales, rhonchi, stridor Cardiovascular Exam: Present: regular rate, normal rhythm, normal heart sounds. Absent: systolic murmur, diastolic murmur, rubs, gallop, clicks GI/Abdominal exam: Present: soft, normal bowel sounds. Absent: distended, tenderness, guarding, rebound, rigid Extremities exam: Present: normal inspection, full ROM, normal capillary refill. Absent: tenderness, pedal edema, joint swelling, calf tenderness Back exam: Present: normal inspection Neurological exam: Present: alert, oriented X3, CN II-XII intact Psychiatric exam: Present: normal affect, normal mood Skin exam: Present: warm, dry, intact, normal color. Absent: rash Course Vital Signs 06/08/24 06/08/24 06/08/24 14:40 15:22 16:58 Temperature 979.9 F H 97.8 F Pulse Rate 97 81 79 Respiratory 18 18 18 Rate Blood Pressure 133/82 146/101 138/94 O2 Sat by Pulse 97 95 100 Oximetry 06/08/24 18:13 Temperature Pulse Rate 78 Respiratory 18 Rate Blood Pressure 128/93 O2 Sat by Pulse 94 L Oximetry - Reevaluation(s) Reevaluation #1: Medical records reviewed Reevaluation #2: Symptoms unchanged Reevaluation #3: patient informed of results questions answered Studies ultrasound gallbladder negative for acute disease chest x-ray negative for acute disease CT abdomen pelvis negative for acute disease Reevaluation #4: Was pt. sent in by a medical professional or institution (, PA, INFANT BABYSITTER, urgent care, hospital, or fdc...) When possible be specific @ -no Did you speak to anyone other than the patient for history (EMS, parent, family, police, friend...)? What history was obtained from this source @ -no Did you review nursing and triage notes (agree or disagree)? Why? @ -agree Are old charts reviewed (outside hosp., previous admission, EMS record, old EKG, old radiological studies, urgent care reports/EKG's, fdc records)? Report findings @ -yes Differential Diagnosis (chest pain, altered mental status, abdominal pain women, abdominal pain men, vaginal bleeding, weakness, fever, dyspnea, syncope, headac he, dizziness, GI bleed, back pain, seizure, CVA, palpatations, mental health, musculoskeletal)? @ -prior EKG interpreted by me (3pts min.). @ -yes X-rays interpreted by me (1pt min.). @ -yes negative for acute disease CT interpreted by me (1pt min.). @ -yes negative for acute disease U/S interpreted by me (1pt. min.). @ -yes negative for acute disease What testing was considered but not performed or refused? (CT, X-rays, U/S, labs)? Why? @ -none What meds were considered but not given or refused? Why? @ -none Did you discuss the management of the patient with other professionals (prof paz i.eCisco Agustin, PA, INFANT BABYSITTER, lab, RT, psych nurse, delinquency prevention social worker, mail delivery supervisor, teacher, energy control officer, bottle caser)? Give summary @ -no Was smoking cessation discussed for >3mins.? @ -no Was critical care preformed (if so, how long)? @ -no Were there social determinants of health that impacted care today? How? (Homelessness, low income, unemployed, alcoholism, drug addiction, transportation, low edu. Level, literacy, decrease access to med. care, retirement, rehab)? @ -none Was there de-escalation of care discussed even if they declined (Discuss DNR or withdrawal of care, Hospice)? DNR status @ -no What co-morbidities impacted this encounter? (DM, HTN, Smoking, COPD, CAD, Cancer, CVA, ARF, Chemo, Hep., AIDS, mental health diagnosis, sleep apnea, morbid obesity)? @ -none Was patient admitted / discharged? Hospital course, mention meds given and route, prescriptions, significant lab abnormalities, going to OR and other pertinent info. @ - 54 female to ER for evaluation of chest pain atypical chest pain, patient has no chest pain here in the emergency room and feels well can be discharged home Discharge chest pain and abdominal pain Undiagnosed new problem with uncertain prognosis? @ -no Drug Therapy requiring intensive monitoring for toxicity (Heparin, Nitro, Insulin, Cardizem)? @ -no Were any procedures done? @ -no Diagnosis/symptom? @ - Acute, or Chronic, or Acute on Chronic? @ -Acute Uncomplicated (without systemic symptoms) or Complicated (systemic symptoms)? @ -Complicated Side effects of treatment? @ -no Exacerbation, Progression, or Severe Exacerbation? @ -exacerbation Poses a threat to life or bodily function? How? (Chest pain, [place], [place], pneumonia, PE, COPD, DKA, ARF, appy, cholecystitis, CVA, Diverticulitis, Homicidal, Suicidal, threat to staff... and all critical care pts) @ -yes with chest pain and abodminal pain Reevaluation #5: Differential Chest Pain: Stable Angina, Unstable Angina, STEMI, NSTEMI Aortic Dissection, Pneumothorax, Musculoskeletal, Esophageal Spasm GERD, Cholecystitis, Pancreatitis, Zoster, this is not meant to be an all-inclusive list. Chest Pain MDM - MDM 54 female to ER for evaluation of chest pain atypical chest pain, patient has no chest pain here in the emergency room and feels well can be discharged home Disposition Clinical Impression: Atypical chest pain Disposition: HOME SELF-CARE Condition: Fair Instructions (If sedation given, give patient instructions): Chest Pain (ED) Is patient prescribed a controlled substance at d/c from ED?: No Referrals: Flor Kellogg MD [Primary Care Provider] - 1-2 days Time of Disposition: 17:25
[2024-06-08] MEDS: HYDROmorphone 1 MG/ML 1 ML SYRINGE IVP STA (15:17)
[2024-06-08] MEDS: SODIUM CHLORIDE 0.9% 1,000 ML IV STA (15:17)
[2024-06-08] MEDS: ONDANSETRON 4 MG/2 ML VIAL IVP STA ×2 (15:18→16:06)
[2024-06-08] MEDS: PANTOPRAZOLE 40 MG/10 ML VIAL IVP STA (15:18)
[2024-06-08 15:37] LABS: Basophils # (A) 0.1 k/uL (0-0.2); Basophils % (A) 1 %; Eosinophils # (A) 0.5 k/uL (0-0.7); Eosinophils % (A) 4 %; HCT 48.3 % (34.0-46.0); HGB 15.3 gm/dL (11.4-16.0); Lymphocytes % (A) 16 %; MCH 29.9 pg (25.0-35.0); MCHC 31.7 g/dL (31.0-37.0); MCV 94.3 fL (80.0-100.0); Mean Platelet Volume 7.6; Monocytes # (A) 0.7 k/uL (0-1.0); Monocytes % (A) 6 %; Neutrophils # (A) 8.8 k/uL (1.3-7.7); Neutrophils % (A) 71 %; Platelet Count 361 k/uL (150-450); RBC 5.13 m/uL (3.80-5.40); WBC 12.3 k/uL (3.8-10.6)
[2024-06-08 15:39] LABS: ALT 11 U/L (4-34); African American GFR (CKD) >90 (>60 ml/min/1.73 sqM); Amylase 58 U/L (30-110); Anion Gap 7 mmol/L; Blood Urea Nitrogen 10 mg/dL (7-17); Calcium 8.6 mg/dL (8.4-10.2); Carbon Dioxide 23 mmol/L (22-30); Chloride 106 mmol/L (98-107); Glucose 98 mg/dL (74-99); Lipase 154 U/L (23-300); Non-African American GFR(CKD) >90 (>60 ml/min/1.73 sqM); Sodium 136 mmol/L (137-145); Total Bilirubin 0.5 mg/dL (0.2-1.3); Total Protein 6.4 g/dL (6.3-8.2)
--- NOTE | 2024-06-08 15:45 | US ---
EXAMINATION TYPE: US gallbladder DATE OF EXAM: 06/08/2024 COMPARISON: US 2019 CLINICAL INDICATION: Female, 54 years old with history of pain; Abdomen pain TECHNIQUE: Multiple sonographic images of the right upper quadrant are obtained. FINDINGS: EXAM MEASUREMENTS: Liver Length: 18.9 cm Gallbladder Wall: 0.2 cm CBD: 0.3 cm Right Kidney: 10.1 x 4.6 x 4.7 cm Pancreas: visualized portions wnl, limited by overlying midline bowel gas Liver: enlarged Gallbladder: wnl Evidence for sonographic Dickinson's sign: no CBD: visualized portions wnl, limited by overlying bowel gas Right Kidney: wnl IMPRESSION: 1. No evidence for acute process. 2. Mild hepatomegaly.
[2024-06-08 15:51] LABS: AST 20 U/L (14-36); Potassium 4.5 mmol/L (3.5-5.1)
[2024-06-08 15:52] LABS: Alkaline Phosphatase 70 U/L (38-126)
[2024-06-08 17:12] VITALS: TEMP 97.8
--- NOTE | 2024-06-08 17:40 | CT ---
EXAMINATION TYPE: CT abdomen pelvis w con CT DLP: 1591 mGycm, Automated exposure control for dose reduction was used. DATE OF EXAM: 06/08/2024 4:55 PM COMPARISON: CT abdomen pelvis most recent from 11/16/2023. CLINICAL INDICATION:Female, 54 years old with history of pain; Chest pain. TECHNIQUE: Axial CT abdomen pelvis w con;Sagittal and coronal reformats were created on a separate w orkstation. Contrast used:100 ml mL of Isovue 370 with IV Contrast, (none if empty) Oral contrast used: without Oral Contrast (none if empty) FINDINGS: LOWER CHEST: Unremarkable ABDOMEN LIVER: Unremarkable GALLBLADDER AND BILE DUCTS: Unremarkable. PANCREAS: Unremarkable. SPLEEN: Unremarkable. ADRENAL GLANDS: Unremarkable. KIDNEYS AND URETERS: No evidence of hydronephrosis or renal calculus. The ureters are unremarkable. Tiny probable renal cysts. PELVIS BLADDER: Unremarkable REPRODUCTIVE: Heterogenous appearance of the endometrium and uterus possibly representing thickened e ndometrium and/or fibrotic change. ABDOMEN & PELVIS STOMACH AND BOWEL: No evidence of bowel obstruction. Scattered colonic diverticula.. PERITONEUM/RETROPERITONEUM: No evidence of pneumoperitoneum or free fluid. VASCULATURE: No evidence of aortic aneurysm. MUSCULOSKELETAL: No acute osseous abnormalities LYMPH NODES: No gross evidence for lymphadenopathy. SOFT TISSUE/ABDOMINAL WALL: Umbilical hernia. IMPRESSION: 1. No evidence for acute abdominal process. 2. Colonic diverticulosis. 3. Heterogenous appearance of the uterus with poor visualization of endometrium. Findings could sugg est thickened endometrium with fibroid change. Findings are again seen from 11/14/2023 exam. No follo w-up pelvic ultrasound was performed at this institution.
--- NOTE | 2024-06-08 17:41 | CT ---
EXAMINATION TYPE: CT angio chest CT DLP: 1591 mGycm, Automated exposure control for dose reduction was used. DATE OF EXAM: 06/08/2024 4:57 PM COMPARISON: None CLINICAL INDICATION:Female, 54 years old with history of pain; Chest pain. TECHNIQUE/CONTRAST: CTA scan of the thorax is performed with IV Contrast, patient injected with 100 ml mL of Isovue 370, MIP images are created and reviewed these are created on a separate workstation.. FINDINGS: Pulmonary Artery: There is no evidence for a filling defect within the pulmonary vasculature to sugge st acute pulmonary embolism. The pulmonary artery is of normal size. Lungs/Pleura: Mild centrilobular emphysema changes throughout the lungs. 1No evidence of focal consol idation, pleural effusion or pneumothorax. Airway: Large airways are patent. Heart: Heart is within normal limits for size. Vasculature: No evidence of aortic aneurysm. Mediastinum: No gross evidence of adenopathy. Small hiatal hernia. Musculoskeletal: No acute osseous abnormalities Soft Tissues/lymph nodes: Unremarkable. Lower neck: No significant findings. Upper Abdomen: No significant findings. IMPRESSION: 1. No evidence of pulmonary embolism. 2. Small hiatal hernia.
[2024-06-08 18:15] VITALS: BP 128/93; PULSE 78
== END 2024-06-08 18:14 | disposition home or self-care (01) ==
LOC: EC 14:35
DX: R07.89 Other chest pain (principal); Z88.2 Allergy status to sulfonamides; Z87.891 Personal history of nicotine dependence
CPT/HCPCS: 36415; 93005; 80053; 82150; 83690; 85025; 76705; 71275; 74177; 99285; 96374; 96375 ×2; 96361; J2405; J1170; Q9967; J2470

== ENCOUNTER → 2025-01-16 | Day surgery (SDC) | payer BC ==
[2025-01-15 11:11] VITALS: BMI 33.6
[~2025-01-16] MED LIST changes: -LACTATED RINGERS 1,000 ML IV SCH; +PROPOFOL 10 MG/ML 20 ML VIAL IV ONE
[2025-01-16 10:30] VITALS: RESP 16; TEMP 99
[2025-01-16] MEDS: IV FLUID CONTINUATION 1,000 ML IV ONE (10:32)
[2025-01-16] MEDS: LACTATED RINGERS 1,000 ML IV SCH (10:32)
--- NOTE | 2025-01-16 12:23 | P.PCN ---
Date of Procedure: 01/16/25 Procedure(s) Performed: Brief history: Patient is a pleasant 54-year-old pleasant white female scheduled for an elective upper endoscopy as well as colonoscopy as a part of evaluation of GERD/screening for colon cancer and family history of colon cancer. Her father was diagnosed with colon cancer at age 60. Procedure performed: Esophagogastroduodenoscopy with biopsy Colonoscopy with snare polypectomy, starting with Caridad ink and Endo Clip placement Preoperative diagnosis: GERD/Perez's esophagus Screening for colon cancer and family history of colon cancer Anesthesia: MAC Procedure: After informed consent was obtained from the patient was brought into the endoscopy unit and IV sedation was administered by anesthesia under continuous monitoring. Initially upper endoscopy was done. The Olympus GF 160 video endoscope was inserted inserted into the mouth and esophagus intubated without any difficulty and was gradually advanced into the stomach and duodenum and carefully examined. The bulb and second part of the duodenum appeared normal. The scope was then withdrawn into the stomach adequately insufflated with air and upon careful examination the antrum and body, cardia and fundus appeared normal. Small gastric polyps noted which were biopsied. The scope was then withdrawn into the esophagus. Small hiatal hernia noted. The GE junction was located at 37 cm to the incisors. It appeared regular with no erythema erosions or ulcerations. Rest of the esophagus appeared normal. Patient tolerated the procedure well. At this time the patient continued to remain sedation. Initial digital rectal examination was normal. Olympus CF 160 video colonoscope was then inserted into the rectum and gradually advanced to the cecum without any difficulty. Careful examination was performed as the scope was gradually being withdrawn. The prep was excellent. The cecum, normal-appearing descending colon there was a 1 cm polyp removed by snare polypectomy. Rest of the ascending colon, transverse colon, descending colon, appeared normal. In the distal sigmoid colon at 25 centimeters from the anal verge there was a 4 cm broad-based polyp identified which was removed by piecemeal snare polypectomy and complete polypectomy accomplished. Tattooing was performed with Caridad ink. I attempted at placing the endoclips but was not successful because of the angulation of the colon. At this time I removed the scope and a upper scope was then introduced into the rectum and advanced into sigmoid colon and I was able to place 3 clips at the site of polypectomy. Extensive sigmoid diverticulosis seen. Rest of the sigmoid colon and rectum appeared normal. Retroflexion was performed in the rectum and no lesions were noted. Patient tolerated the procedure well. Impression: 1. Upper endoscopy revealed small gastric polyps and small hiatal hernia but no evidence of Perez's esophagus or esophagitis 2. Colonoscopy: 1 cm ascending colon polyp status post polypectomy 4 cm broad-based distal sigmoid colon polyp at 25 cm from the anal verge status post piecemeal snare polypectomy followed by tattooing with Caridad ink and Endo Clip placement Moderate left-sided diverticulosis Recommendations: Findings of this examination were discussed with the patient as well as her fam chicho. She was advised to follow with the biopsy results. She will be seen in the office in 1 to 2 weeks. Based on the biopsy results will plan a repeat sigmoidoscopy in 2 to 3 months..
[2025-01-16 12:29] VITALS: BP 144/87; PULSE 71
== END ==
LOC: ORWHC2ENDO 10:07
PROVIDERS: ATTEND Internal Medicine Gastroenterology
DX: Z12.11 Encounter for screening for malignant neoplasm of colon (principal); Z80.0 Family history of malignant neoplasm of digestive organs; K22.70 Barrett's esophagus without dysplasia; K31.7 Polyp of stomach and duodenum; D12.2 Benign neoplasm of ascending colon; D12.5 Benign neoplasm of sigmoid colon; K57.30 Diverticulosis of large intestine without perforation or abscess without bleeding; K44.9 Diaphragmatic hernia without obstruction or gangrene
CPT/HCPCS: 88305; 45385; 43239; 44404; J2704

== ENCOUNTER → 2025-03-17 | Outpatient (CLI) | payer BC ==
--- NOTE | 2025-03-17 17:40 | CTL ---
EXAMINATION TYPE: CT Low Dose Lung DATE OF EXAM ORDERED: 03/17/2025 COMPARISON: CTA chest 06/08/2024 CLINICAL INDICATION: Female, 55 years old with history of Z12.2 ENCNTR SCREEN FOR MALIGNANT NEOPLASM OF RESP; PH[facility], Former smoker, quit 2014, was 1 ppd x 25 years, c/o SOB., Lung cancer screening, Histor y of Smoking/tobacco use. TECHNIQUE: Low dose computed tomography scan was performed through the chest at 1 mm thick sections a nd reconstructed images in multiple planes at 1 mm and [address] DLP: 87.[address] CTDI: 2.4 mGy Automated exposure control for dose reduction was used. CT DIAGNOSTIC QUALITY: Satisfactory FINDINGS: Nodules: No clinically significant pulmonary nodules. LUNGS: COPD: Severity: None Fibrosis: Severity: None Lymph nodes: None Other findings: None RIGHT PLEURAL SPACE: Effusion: None Calcification: None Thickening: None Pneumothorax: None LEFT PLEURAL SPACE: Effusion: None Calcification: None Thickening: None Pneumothorax: None HEART: Heart Size: Normal Coronary Calcification: None Pericardial Effusion: None OTHER FINDINGS: Upper abdomen: None Bony thorax: None Supraclavicular region: None Other: None IMPRESSION: No clinically significant pulmonary nodules. CT LUNG RAD AND CT CHEST RECOMMENDATION: Lung-Rad 1 Negative: Continue annual screening with LDCT in 12 months. S Modifier (other clinically significant findings): None [facility], , 03/17/2025 5:38 PM
== END | disposition home or self-care (01) ==
LOC: RADCTMAIN 11:34
PROVIDERS: ATTEND Family Medicine
DX: Z12.2 Encounter for screening for malignant neoplasm of respiratory organs (principal); Z87.891 Personal history of nicotine dependence
CPT/HCPCS: 71271

== ENCOUNTER → 2025-03-17 | Outpatient (CLI) | payer BC ==
--- NOTE | 2025-03-17 11:38 | MM ---
Reason for Exam: Screening (asymptomatic). Last screening mammogram was performed 12 month(s) ago. Patient History: Menarche at age 12. First Full-Term at age 24. Postmenopausal. Currently using Estrogen, for 1 month. Currently using Progesterone, for 1 month. Paternal grandmother had breast cancer, age 80. Paternal aunt had breast cancer, age 49. Risk Values: Katina 5 year model risk: 1.3%. NCI Lifetime model risk: 8.0%. Prior Study Comparison: 03/02/2022 Bilateral Screening Mammogram, [facility]. 03/05/2023 Bilateral MG 3D screening mammo w/cad, [facility]. 03/06/2024 Bilateral MG 3D screening mammo w/cad, [facility]. Tissue Density: There are scattered areas of fibroglandular density. Findings: Analyzed By CAD. There is no suspicious group of microcalcifications or new suspicious mass in either breast. Overall Assessment: Negative, BI-RAD 1 Management: Screening Mammogram of both breasts in 1 year. . Patient should continue monthly self-breast exams. A clinical breast exam by your physician is recommended on an annual basis. This exam should not preclude additional follow-up of suspicious palpable abnormalities. Note on Katina scores and lifetime risk: 1. A Katina score greater than 3% is considered moderate risk. If this is the case, consider specialist referral to assess eligibility for a risk reducing agent. 2. If overall lifetime risk for the development of breast cancer is 20% or higher, the patient may qualify for future screening with alternating mammogram and breast MRI. [facility], , 03/17/2025 11:35 AM. Electronically signed and approved by: Bryce Baron M.D. Radiologis
== END | disposition home or self-care (01) ==
LOC: RADMAMWWP 11:12
PROVIDERS: ATTEND Obstetrics & Gynecology
DX: Z12.31 Encounter for screening mammogram for malignant neoplasm of breast (principal); R92.323 Mammographic fibroglandular density, bilateral breasts; Z78.0 Asymptomatic menopausal state; Z80.3 Family history of malignant neoplasm of breast
CPT/HCPCS: 77063; 77067

== ENCOUNTER 2025-05-15 10:35 | Day surgery (SDC) | payer BC ==
[2025-05-15 11:41] VITALS: TEMP 98.5
[2025-05-15] MEDS: IV FLUID CONTINUATION 1,000 ML IV ONE (11:49)
[2025-05-15] MEDS: LACTATED RINGERS 1,000 ML IV SCH (11:49)
[2025-05-15] MEDS ORDERED: PROPOFOL 10 MG/ML 20 ML VIAL IV ONE (12:31)
--- NOTE | 2025-05-15 12:51 | P.PCN ---
Date of Procedure: 05/15/25 Procedure(s) Performed: BRIEF HISTORY: Patient is a 48-year-old pleasant white female scheduled for an elective colonoscopy as a part of follow-up of large sigmoid colon polyp that was noted on recent screening colonoscopy in December 2024. She was noted to have a 4 cm broad-based polyp that was removed by piecemeal snare polypectomy followed by Endo Clip placement. Biopsies revealed tubular adenoma. She is scheduled for repeat surveillance colonoscopy today. . PROCEDURE PERFORMED: Colonoscopy with snare polypectomy. PREOPERATIVE DIAGNOSIS: Follow-up large sigmoid colon polyp. IV sedation per Anesthesia. PROCEDURE: After informed consent was obtained, the patient, was brought into the endoscopy unit. IV sedation was administered by Anesthesia under continuous monitoring. Digital rectal examination was normal. Initially the Olympus CF-160 flexible video colonoscope was then inserted in the rectum, gradually advanced into the cecum without any difficulty. Careful examination was performed as the scope was gradually being withdrawn. Ileocecal valve and the appendiceal orifice were visualized and appeared normal. Prep was excellent. Mucosa of the cecum, appeared normal. In the ascending colon there was a 1 cm flat polyp that was removed by snare polypectomy. Rest of the ascending colon, transverse colon, descending colon, appeared normal. In the sigmoid colon at the site of previous polypectomy there was a 1.5 cm residual polyp identified that was removed by hot snare polypectomy and complete polypectomy was accomplished. In the proximal rectum there is a small hyperplastic looking polyps measuring 3 mm in size that were removed by cold snare polypectomy. Moderate sigmoid diverticulosis.. Retroflexion was performed in the rectum and no lesions were seen. The patient tolerated the procedure well. IMPRESSION: 1.5 cm residual sigmoid colon polyp at the site of previous polypectomy status post hot snare polypectomy 1 cm flat ascending colon polyp status post snare polypectomy 3 mm proximal rectal polyp status post cold snare polypectomy Moderate left-sided diverticulosis. RECOMMENDATIONS: Findings of this examination were discussed with the patient as well as her family. She was advised to follow-up with the biopsy results. Follow-up in the office in 1 week. Recommended repeat colonoscopy in 1 year..
[2025-05-15 13:13] VITALS: BP 124/81; PULSE 67; RESP 18
== END 2025-05-15 13:31 | disposition home or self-care (01) ==
LOC: ORWHC2ENDO 10:35
PROVIDERS: ATTEND Internal Medicine Gastroenterology
DX: D12.5 Benign neoplasm of sigmoid colon (principal); D12.2 Benign neoplasm of ascending colon; D12.8 Benign neoplasm of rectum; K57.30 Diverticulosis of large intestine without perforation or abscess without bleeding; I10 Essential (primary) hypertension; K22.70 Barrett's esophagus without dysplasia; F41.9 Anxiety disorder, unspecified; Z79.899 Other long term (current) drug therapy; Z88.2 Allergy status to sulfonamides
CPT/HCPCS: 88305; 45385; J2704

== ENCOUNTER → 2025-06-08 | Outpatient (CLI) | payer BC ==
[2025-06-08 15:58] LABS: ALT 12 U/L (8-44); AST 14 U/L (13-35); Albumin 3.8 g/dL (3.8-4.9); Albumin/Globulin Ratio 1.90 Ratio (1.60-3.17); Alkaline Phosphatase 78 U/L (41-126); Anion Gap 8.00 mmol/L (4.00-12.00); BUN/Creat Ratio 19.20 Ratio (12.00-20.00); Blood Urea Nitrogen 9.6 mg/dL (9.0-27.0); Calcium 8.5 mg/dL (8.7-10.3); Carbon Dioxide 30.0 mmol/L (21.6-31.8); Chloride 102 mmol/L (96-109); Cholesterol 234.00 mg/dL (0.00-200.00); Globulin 2.0 g/dL (1.6-3.3); Glucose 102 mg/dL (70-110); HDL Cholesterol 39.90 mg/dL (40.00-60.00); LDL Cholesterol,Calculated 156.9 mg/dL (0.0-131.0); Potassium 4.2 mmol/L (3.5-5.5); Sodium 140 mmol/L (135-145); Total Protein 5.8 g/dL (6.2-8.2); Triglycerides 186.00 mg/dL (0.00-149.00); VLDL Calculation 37.20 mg/dL (5.00-40.00)
[2025-06-08 16:10] LABS: Basophils # (A) 0.09 X 10*3/uL (0.00-0.10); Basophils % (A) 1.1 %; Eosinophils # (A) 0.29 X 10*3/uL (0.04-0.35); Eosinophils % (A) 3.5 %; HCT 43.7 % (37.2-46.3); HGB 13.8 g/dL (12.0-15.0); Immature Grans, Automated 0.50 %; Lymphocytes # (A) 1.75 X 10*3/uL (0.90-5.00); Lymphocytes % (A) 21.1 %; MCH 30.1 pg (27.0-32.0); MCHC 31.6 g/dL (32.0-37.0); MCV 95.2 FL (80.0-97.0); Monocytes # (A) 0.66 X 10*3/uL (0.20-1.00); Monocytes % (A) 8.0 %; NRBC Per 100 WBC 0 X 10*3/uL (0.00-0.01); Neutrophils # (A) 5.46 X 10*3/uL (1.80-7.70); Neutrophils % (A) 65.8 %; Platelet Count 330 X 10*3/uL (140-440); RBC 4.59 X 10*6/uL (4.10-5.20); RDW 12.9 % (11.5-14.5); WBC 8.29 X 10*3/uL (4.50-10.00)
== END | disposition home or self-care (01) ==
LOC: LABWHC1 08:42
PROVIDERS: ATTEND Family Medicine
DX: Z00.00 Encounter for general adult medical examination without abnormal findings (principal); E78.1 Pure hyperglyceridemia; Z79.899 Other long term (current) drug therapy
CPT/HCPCS: 36415; 80053; 80061; 83036; 84443; 85025